=== PATIENT | male | born 1945 | race American Indian/Alaskan Native ===

== ENCOUNTER 2017-01-29 00:35 | Emergency (ER) | payer MEDICARE, OTHER ==
[2017-01-29] MEDS ORDERED: ATROPINE 0.1% (CARDIAC) ONE (14:24)
[2017-01-29] MEDS ORDERED: SODIUM BICARBONATE IV ONE (14:24)
[2017-01-29] MEDS ORDERED: CALCIUM CHLORIDE IV ONE (14:24)
[2017-01-29] MEDS ORDERED: ADRENALIN ONE (14:24)
== END 2017-01-29 04:48 ==
LOC: ED 00:35
DX: I46.9 Cardiac arrest, cause unspecified (principal)
CPT/HCPCS: 99285; J0171; J0461